=== PATIENT | male | born 1960 | race Caucasian/White ===

== ENCOUNTER 2018-03-14 11:30 | Inpatient (IN) | payer OTHER ==
[~2018-03-14] VITALS: Ht 152.4 cm; Wt 79.8 kg
[2018-03-14 11:56] LABS: BASOPHILS % 0.7 % (0.0-2.0); CHLORIDE 106 mEq/L (98-107); EOSINOPHILS % 1.5 % (0.0-5.0); HEMATOCRIT. 49.2 % (42.0-52.0); HEMOGLOBIN. 16.9 g/dL (14.0-18.0); LYMPHOCYTES % 27.1 % (20.0-50.0); MEAN CORPUSCULAR HEMOGLOBIN 32.7 pg (28.0-32.0); MEAN PLATELET VOLUME 8.7 fl (7.4-10.4); MONOCYTES % 8.8 % (2.0-8.0); NEUTROPHILS % 61.9 % (40.0-76.0); PLATELET 191 x1000/uL (130-400); RED BLOOD CELL COUNT 5.18 mill/uL (4.7-6.1)
[2018-03-14 11:59] LABS: INR 1.1; PROTHROMBIN TIME 10.6 sec (9.1-11.1)
[2018-03-14] MEDS ORDERED: ASPIRIN 325MG TABLET PO ONE (12:15)
[2018-03-14] MEDS ORDERED: DILTIAZEM HCL 5MG/ML 5ML VIAL IV ONE (14:45)
[2018-03-14] MEDS ORDERED: ENOXAPARIN 80MG/0.8ML SYR SUBCUT ONE (14:45)
[2018-03-14] MEDS ORDERED: DILTIAZEM HCL 240MG ER (24HR) PO ONE (14:45)
[2018-03-14] MEDS ORDERED: IOHEXOL-350 100 ML BOTTLE ONE (15:03)
[2018-03-14] MEDS ORDERED: DILTIAZEM HCL 5MG/ML 5ML VIAL IV PRN (16:30)
[2018-03-14] MEDS ORDERED: POTASSIUM CHLORIDE 20MEQ TABLET SR PO NR (16:30)
[2018-03-14] MEDS ORDERED: ACETAMINOPHEN 325MG TABLET PO PRN (18:30)
[2018-03-14] MEDS ORDERED: CLONIDINE 0.1MG TABLET PO PRN (18:30)
[2018-03-14] MEDS ORDERED: ONDANSETRON HCL 4MG/2ML VIAL IV PRN (18:30)
[2018-03-14] MEDS ORDERED: MAGNESIUM HYDROXIDE 400MG/5ML 30ML UDC PO PRN (18:30)
[2018-03-14] MEDS ORDERED: TEMAZEPAM 15MG CAPSULE PO PRN (18:30)
[2018-03-14] MEDS ORDERED: DIPHENHYDRAMINE 50MG/ML VIAL IV PRN (18:30)
[2018-03-14] MEDS ORDERED: GUAIFENESIN 200MG/10ML SUGAR FREE UDC PO PRN (18:30)
[2018-03-14] MEDS ORDERED: MAGNESIUM/ALUMINUM HYDROXIDE/SIMETHICONE 30ML UDC PO PRN (18:30)
[2018-03-14 20:00] VITALS: BP 121/79
[2018-03-14 20:42] LABS: *AMPHETAMINES SCREEN URINE NEGATIVE (NEGATIVE); CANNABINOID URINE SCREEN NEGATIVE (NEGATIVE)
[2018-03-14 20:43] LABS: *BARBITURATES SCREEN URINE NEGATIVE (NEGATIVE); *BENZODIAZEPINES SCREEN URINE NEGATIVE (NEGATIVE); *COCAINE SCREEN URINE NEGATIVE (NEGATIVE); METHADONE URINE SCREEN NEGATIVE (NEGATIVE); OPIATES URINE SCREEN NEGATIVE (NEGATIVE)
[2018-03-14 20:44] LABS: PHENCYCLIDINE URINE SCREEN NEGATIVE (NEGATIVE)
[2018-03-14 20:47] VITALS: BP 121/79
[2018-03-14] MEDS: ENOXAPARIN 80MG/0.8ML SYR SUBCUT SCH (21:12)
[2018-03-14] MEDS: SODIUM CHLORIDE 0.9% INJ 3ML FLUSH IVF SCH (21:12)
[2018-03-14 22:00] VITALS: BP 96/57
[2018-03-15] VITALS (11 sets, daily range): BP systolic 92–140; BP diastolic 45–75
[2018-03-15] MEDS: DILTIAZEM HCL 30MG TABLET PO SCH ×2 (05:10→12:00)
[2018-03-15] MEDS: SODIUM CHLORIDE 0.9% INJ 3ML FLUSH IVF SCH (05:10)
[2018-03-15 07:08] LABS: BASOPHILS % 0.7 % (0.0-2.0); EOSINOPHILS % 2.1 % (0.0-5.0); HEMATOCRIT. 44.2 % (42.0-52.0); HEMOGLOBIN. 15.3 g/dL (14.0-18.0); MEAN CORPUSCULAR HEMOGLOBIN 32.9 pg (28.0-32.0); MONOCYTES % 12.6 % (2.0-8.0); NEUTROPHILS % 54.6 % (40.0-76.0); PLATELET 165 x1000/uL (130-400); RED BLOOD CELL COUNT 4.66 mill/uL (4.7-6.1)
[2018-03-15 07:27] LABS: CHLORIDE 108 mEq/L (98-107)
[2018-03-15 08:00] LABS: LDL CHOLESTEROL 202 mg/dL (5-100)
[2018-03-15 08:01] LABS: CREATINE KINASE 68 IU/L (39-308); HDL CHOLESTEROL 42 mg/dL (40-59)
[2018-03-15 08:02] LABS: CREATINE KINASE MB FRACTION < 1.0 ng/mL (0.5-3.6)
[2018-03-15] MEDS: ENOXAPARIN 80MG/0.8ML SYR SUBCUT SCH (08:54)
[2018-03-15] MEDS ORDERED: APIXABAN 5 MG TABLET PO NR (15:12)
[2018-03-15] MEDS ORDERED: DILTIAZEM HCL 240MG ER (24HR) PO NR (15:13)
[2018-03-15] MEDS ORDERED: DILTIAZEM HCL 30MG TABLET PO SCH (18:00)
[2018-03-15] MEDS ORDERED: ATORVASTATIN CALCIUM 40MG TABLET PO SCH (21:00)
== END 2018-03-15 20:00 | disposition home or self-care (01) | DRG 69 ==
LOC: ER 11:30 → 3WST 15:20 → EDBEDREQTM 15:27 → EDBEDREQ 15:27 → EDBEDREQSVC 15:27 → ENRESERV 16:32
PROVIDERS: ADMIT Internal Medicine; ATTEND Internal Medicine
DX: G45.9 Transient cerebral ischemic attack, unspecified (principal); E78.00 Pure hypercholesterolemia, unspecified; I95.9 Hypotension, unspecified; I48.2 Chronic atrial fibrillation; I10 Essential (primary) hypertension; Z79.01 Long term (current) use of anticoagulants; Z79.82 Long term (current) use of aspirin; Z82.49 Family history of ischemic heart disease and other diseases of the circulatory system
CPT/HCPCS: 36415; 70450; 70496; 70498; 70551; 71045; 80053; 80061; 80305; 82550; 82553; 83735; 84443; 84484; 85025; 85379; 85610; 93005; 93306; 93970; 96372; 96374; 96375; 97162; 97166; 99291; J1650; J3490; Q9967